=== PATIENT | male | born 1965 | race Caucasian/White ===

== ENCOUNTER 2017-07-28 16:15 | Emergency (ER) | payer BC, OTHER ==
[2017-07-28 18:06] VITALS: BP 144/84
--- NOTE | 2017-07-28 18:14 | UC ---
Respiratory Complaint HPI - HPI Summary HPI Summary: Patient in in emergency department diagnosed with sinusitis patient does have some continuing pain is here tonight for a work note - History of Current Complaint Chief Complaint: UCGeneralIllness Stated Complaint: SINUS PRESSURE, SWOLLEN GLANDS, EAR PAIN Time Seen by Provider: 07/28/17 18:00 Hx Obtained From: Patient Onset/Duration: Gradual Onset, Lasting Days, Still Present Timing: Constant Severity Initially: Moderate Severity Currently: Moderate Pain Intensity: 5 Pain Scale Used: 0-10 Numeric Aggravating Factors: Nothing Alleviating Factors: Nothing Associated Signs And Symptoms: Positive: Nasal Congestion, Sinus Discomfort - Allergies/Home Medications Allergies/Adverse Reactions: Allergies Allergy/AdvReac Type Severity Reaction Status Date / Time tramadol Allergy Headache Verified 07/28/17 18:01 Home Medications: Home Medications Aspirin/Acetaminophen/Caffeine [Excedrin Migraine Caplet] 1 each PO Q12H [History Confirmed 07/28/17] Gabapentin [Neurontin] 100 mg PO Q8H 07/28/17 [History Confirmed 07/28/17] celeCOXIB CAP* [CeleBREX CAP*] 400 mg PO DAILY 07/28/17 [History Confirmed 07/28] PMH/Surg Hx/FS Hx/Imm Hx Previously Healthy: Yes - Surgical History Surgical History: Yes Surgery Procedure, Year, and Place: L4-L5 [facility] - Family History Known Family History: Positive: None - Social History Occupation: Employed Full-time Lives: With Family Alcohol Use: None Substance Use Type: None Substance Use Comment - Amount & Last Used: 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 Smoking Status (MU): Never Smoked Tobacco Have You Smoked in the Last Year: No Review of Systems Constitutional: Negative Skin: Negative Eyes: Negative ENT: Sore Throat, Ear Ache, Nasal Discharge, Sinus Congestion, Sinus Pain/ Tenderness Respiratory: Negative Cardiovascular: Negative Gastrointestinal: Negative Genitourinary: Negative Motor: Negative Neurovascular: Negative Musculoskeletal: Negative Neurological: Negative Psychological: Negative Is Patient Immunocompromised?: No All Other Systems Reviewed And Are Negative: Yes Physical Exam Triage Information Reviewed: Yes Appearance: Well-Appearing, No Pain Distress, Well-Nourished Vital Signs: Initial Vital Signs Temp 98.2 F 07/28/17 17:55 Pulse 80 07/28/17 17:55 Resp 16 07/28/17 17:55 BP 144/84 07/28/17 17:55 Pulse Ox 96 07/28/17 17:55 Vital Signs Reviewed: Yes Eye Exam: Normal Eyes: Positive: Conjunctiva Clear ENT Exam: Normal ENT: Positive: Normal ENT inspection, Hearing grossly normal, Nasal congestion, Nasal drainage, TMs normal, Sinus tenderness, Uvula midline. Negative: Trismus , Muffled voice, Hoarse voice, Dental tenderness Dental Exam: Normal Neck exam: Normal Neck: Positive: Supple, Nontender, No Lymphadenopathy Respiratory Exam: Normal Respiratory: Positive: Chest non-tender, Lungs clear, Normal breath sounds, No respiratory distress, No accessory muscle use Cardiovascular Exam: Normal Cardiovascular: Positive: RRR, No Murmur, Pulses Normal, Brisk Capillary Refill Musculoskeletal Exam: Normal Musculoskeletal: Positive: Strength Intact, ROM Intact, No Edema Neurological Exam: Normal Neurological: Positive: Alert, Muscle Tone Normal Psychological Exam: Normal Skin Exam: Normal UC Diagnostic Evaluation - Laboratory O2 Sat by Pulse Oximetry: 96 Respiratory Course/Dx - Course Course Of Treatment: Will add Flonase nasal spray, taken out of work follow with PCP - Differential Dx/Diagnosis Provider Diagnoses: Acute rhinosinusitis, elevated blood sugar without diagnosis of hypertension Discharge - Sign-Out/Discharge Documenting (check all that apply): Discharge - Discharge Plan Condition: Stable Disposition: HOME Prescriptions: Fluticasone NASAL SPRAY 50MCG* [Flonase NASAL SPRAY 50MCG*] 2 spray BOTH NARES DAILY #1 btl Patient Education Materials: Sinusitis (ED), Lymphadenopathy (ED), Hypertension (ED) Forms: *Work Release Referrals: Elena CASEY,Lindsey Dey [Primary Care Provider] - 2 Weeks - Billing Disposition and Condition Condition: STABLE Disposition: HOME
== END 2017-07-28 18:30 | disposition home or self-care (01) ==
LOC: UCCORT 16:15
DX: J01.90 Acute sinusitis, unspecified (principal); R03.0 Elevated blood-pressure reading, without diagnosis of hypertension; Z88.5 Allergy status to narcotic agent
CPT/HCPCS: 99212; G0463

== ENCOUNTER 2017-08-03 20:26 | Emergency (ER) | payer BC ==
[2017-08-03] MEDS ORDERED: Dexamethasone Oral Solution* 1 MG/ML 10 ML UDC (10 MG) PO ONE (20:37)
[2017-08-03] MEDS ORDERED: diPHENhydraMINE PO* 50 MG PO ONE (20:37)
--- NOTE | 2017-08-03 20:48 | ED ---
Allergic Reaction/Systemic - HPI Summary HPI Summary: 52 yr old on Amoxicillin for 8 days for URI symptoms, and now with hives, itching to arms, neck, and tongue feels a little swollen. He feels he is now allergic to amoxicillin. Never had an issue before. His rash and mild swollen tongue have come on over a period of the past three days. No change in voice, no change in breathing, no drooling. - History of Current Complaint Time Seen by Provider: 08/03/17 20:32 - Allergies/Home Medications Allergies/Adverse Reactions: Allergies Allergy/AdvReac Type Severity Reaction Status Date / Time tramadol Allergy Headache Verified 08/03/17 20:54 PMH/Surg Hx/FS Hx/Imm Hx Musculoskeletal History: Reports: Other Musculoskeletal History - Metatarsus Adductus (MTA); left shoulder rotator cuff Sensory History: Reports: Hx Contacts or Glasses Opthamlomology History: Reports: Hx Contacts or Glasses - Surgical History Surgery Procedure, Year, and Place: L4-L5 [facility] Infectious Disease History: Denies: Traveled Outside the [place] in Last 30 Days - Family History Known Family History: Positive: None - Social History Alcohol Use: None Substance Use Type: Reports: None Substance Use Comment - Amount & Last Used: 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 Lips normal size, eyelids normal size. Head/Face: Positive: Normal Head/Face Inspection Eyes: Positive: EOMI ENT: Positive: Pharynx normal, Uvula midline, Other - tongue appears normal size. No drooling no stridor. He speaks with clear voice. Negative: Nasal congestion, Nasal drainage, Tonsillar swelling, Trismus, Muffled voice, Hoarse voice Neck: Positive: Supple, Nontender Respiratory/Lung Sounds: Positive: Clear to Auscultation, Breath Sounds Present Cardiovascular: Positive: RRR. Negative: Murmur Abdomen Description: Positive: Nontender Musculoskeletal: Positive: Normal, Strength/ROM Intact Neurological: Positive: Sensory/Motor Intact, Alert, Oriented to Person Place, Time, CN Intact II-III Psychiatric: Positive: Normal Re-Evaluation - Re-Evaluation First Eval Re-Evaluation Time: 21:32 Change: Unchanged Comment: Patient stable. His rash is stable and tongue not swollen. He has had symptoms stable for about two days. Will Rx with steroids and benadryl, as I believe this is a more delayed reaction from his amoxicillin. Allergic Reaction Course/Dx - Course Course Of Treatment: allergic reaction, subacute delayed to amox. - Diagnoses Provider Diagnoses: Allergic reaction Discharge - Sign-Out/Discharge Documenting (check all that apply): Discharge/Admit/Transfer - Discharge Plan Condition: Good Disposition: HOME Prescriptions: predniSONE TAB* [Deltasone TAB*] 40 mg PO DAILY #8 tab Referrals: Mary Myers MD [Primary Care Provider] - 2 Days - Billing Disposition and Condition Condition: GOOD Disposition: HOME
[2017-08-03 20:54] VITALS: BP 132/73
== END 2017-08-03 21:46 | disposition home or self-care (01) ==
LOC: UCCORT 20:26
DX: T78.40XA Allergy, unspecified, initial encounter (principal); Z88.5 Allergy status to narcotic agent
CPT/HCPCS: 99212; A9270-GY; G0463

== ENCOUNTER 2017-08-26 19:17 | Emergency (ER) | payer BC ==
[2017-08-26 20:28] VITALS: BP 115/79
[2017-08-26] MEDS ORDERED: DOXYcycline CAP(*) 100 MG PO ONE (20:36)
--- NOTE | 2017-08-26 20:37 | UC ---
Respiratory Complaint HPI - HPI Summary HPI Summary: 52 yo male with 3-4 week hx of sinus pressure and pain as well as post nasal drip low energy no f/c upper teeth and gums sensitive - History of Current Complaint Chief Complaint: UCGeneralIllness Stated Complaint: SINUS/SORE THROAT Time Seen by Provider: 08/26/17 20:25 Hx Obtained From: Patient Onset/Duration: Gradual Onset, Lasting Weeks Timing: Constant Severity Initially: Mild Severity Currently: Moderate Pain Intensity: 4 Pain Scale Used: 0-10 Numeric Character: Cough: Nonproductive Aggravating Factors: Nothing Alleviating Factors: Nothing Associated Signs And Symptoms: Positive: Nasal Congestion, Sinus Discomfort - Allergies/Home Medications Allergies/Adverse Reactions: Allergies Allergy/AdvReac Type Severity Reaction Status Date / Time amoxicillin Allergy Swelling Verified 08/26/17 20:25 tramadol Allergy Headache Verified 08/26/17 20:25 PMH/Surg Hx/FS Hx/Imm Hx Previously Healthy: Yes - Surgical History Surgical History: Yes Surgery Procedure, Year, and Place: L4-L5 [facility] 2017 - Family History Known Family History: Positive: Hypertension - Social History Alcohol Use: None Substance Use Type: None Substance Use Comment - Amount & Last Used: 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 Smoking Status (MU): Never Smoked Tobacco Have You Smoked in the Last Year: No Review of Systems Constitutional: Negative Skin: Negative Eyes: Negative ENT: Dental Pain, Ear Ache, Nasal Discharge, Sinus Congestion, Sinus Pain/ Tenderness Respiratory: Cough Cardiovascular: Negative Gastrointestinal: Negative Genitourinary: Negative Motor: Negative Neurovascular: Negative Musculoskeletal: Negative Neurological: Negative Psychological: Negative Is Patient Immunocompromised?: No All Other Systems Reviewed And Are Negative: Yes Physical Exam Triage Information Reviewed: Yes Appearance: Well-Appearing, No Pain Distress, Well-Nourished Vital Signs: Initial Vital Signs Temp 98.2 F 08/26/17 20:22 Pulse 91 08/26/17 20:22 Resp 16 08/26/17 20:22 BP 115/79 08/26/17 20:22 Pulse Ox 100 08/26/17 20:22 Vital Signs Reviewed: Yes Eyes: Positive: Conjunctiva Clear ENT: Positive: Hearing grossly normal, Nasal congestion, TMs normal, Sinus tenderness, Uvula midline. Negative: Pharyngeal erythema, Nasal drainage, Tonsillar swelling, Tonsillar exudate, Trismus, Muffled voice, Hoarse voice, Dental tenderness Neck: Positive: Supple, Nontender, No Lymphadenopathy Respiratory: Positive: Lungs clear, Normal breath sounds, No respiratory distress, No accessory muscle use Cardiovascular: Positive: RRR Musculoskeletal: Positive: ROM Intact, No Edema Neurological: Positive: Alert Psychological Exam: Normal Skin Exam: Normal UC Diagnostic Evaluation - Laboratory O2 Sat by Pulse Oximetry: 100 Respiratory Course/Dx - Differential Dx/Diagnosis Provider Diagnoses: acute sinusitis Discharge - Sign-Out/Discharge Documenting (check all that apply): Discharge/Admit/Transfer - Discharge Plan Condition: Stable Disposition: HOME Prescriptions: DOXYcycline CAP(*) [DOXYcycline 100MG CAP(*)] 100 mg PO BID #18 cap Patient Education Materials: Sinusitis (ED) Referrals: Mary Myers MD [Primary Care Provider] - 5 Days Additional Instructions: continue flonase saline nasal spray twice daily - Billing Disposition and Condition Condition: STABLE Disposition: HOME
== END 2017-08-26 20:50 | disposition home or self-care (01) ==
LOC: UCCORT 19:17
DX: J01.90 Acute sinusitis, unspecified (principal); Z88.5 Allergy status to narcotic agent; Z88.0 Allergy status to penicillin
CPT/HCPCS: 99212; A9270-GY; G0463

== ENCOUNTER 2017-12-02 12:30 | Emergency (ER) | payer BC ==
[2017-12-02 13:01] VITALS: BP 117/69
--- NOTE | 2017-12-02 13:07 | UC ---
Abdominal Pain Male HPI - HPI Summary HPI Summary: pt presents with nausea and abd cramping. pt,w rowena and child all at dinner at 1830. approx 2000 all3 with nausea and vomiting. pt states son now with diarrhea. pt continues with cramig pain and intermittend diarrhea. nausea improved, but not resolved. pt did not sleep well. pt has been drinking fluids but reports nausea and no energy. no fever, chills. Pt did not go to work today Pt's medications reviewed this visit - History of Current Complaint Chief Complaint: UCGeneralIllness Stated Complaint: STOMACH COMPLAINT NAUSEA WEAK Time Seen by Provider: 12/02/17 13:02 Hx Obtained From: Patient Pain Intensity: 3 - Allergies/Home Medications Allergies/Adverse Reactions: Allergies Allergy/AdvReac Type Severity Reaction Status Date / Time amoxicillin Allergy Swelling Verified 12/02/17 12:59 tramadol Allergy Headache Verified 12/02/17 12:59 PMH/Surg Hx/FS Hx/Imm Hx Previously Healthy: Yes - Surgical History Surgical History: Yes Surgery Procedure, Year, and Place: L4-L5 [facility] 2017 - Family History Known Family History: Positive: None, Hypertension - Social History Occupation: Employed Full-time Lives: With Family Alcohol Use: None Substance Use Type: None Substance Use Comment - Amount & Last Used: 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 EOM intact and full ENT: Hearing grossly normal TM x 2 clear, mmpasty, uvula midline, no exudate, no erythema Neck: Positive: Supple Respiratory: Positive: No respiratory distress, No accessory muscle use + CTA throughout no w/r Cardiovascular: RRR nl s1, s2 no m/r CBT <2 sec abd soft + BS mild diffuse discomfort no guarding, no rebound soft no distension Musculoskeletal Exam: ROTHMAN x 4 without difficulty Strength Intact, ROM Intact Neurological: Positive: Alert, + sensation throughout Psychological: Positive: Normal Response To Family Skin: Positive: no rash, no ecchymosis Triage Information Reviewed: Yes Vital Signs: Initial Vital Signs Temp 98.0 F 12/02/17 12:54 Pulse 85 12/02/17 12:54 Resp 15 12/02/17 12:54 BP 117/69 12/02/17 12:54 Pulse Ox 100 12/02/17 12:54 Abd Pain Male Course/Dx - Course Course Of Treatment: Pt with nausea, abd cramping following questionable food contamination lasst night pt vss pt abd exam with mild discomfort. will give zofran, po trial. likely discharge with clear to bland. rest. motrin/apap. heat pad. work note - Differential Dx/Clinical Impression Provider Diagnoses: abd cramping. nausea Discharge - Sign-Out/Discharge Documenting (check all that apply): Patient Departure All imaging exams completed and their final reports reviewed: No Studies - Discharge Plan Condition: Stable Disposition: HOME Prescriptions: Ondansetron ODT TAB* [Zofran 4 MG Odt TAB*] 4 mg PO Q6H PRN #10 tab.odt PRN Reason: Nausea Patient Education Materials: Acute Nausea and Vomiting (ED) Forms: *Gen. Provider Communication, *Work Release Referrals: Mary Myers MD [Primary Care Provider] - Additional Instructions: - For the first 6 hours, eat and drink clears (water, caroline richie, soup broth, jello, popsicles, Gatorade). If you tolerate this okay, add bland foods such as dry toast, scrambled eggs, crackers. Wait until you are feeling better for 24 hours before eating spicy food, acidic food, tomato based food, fried food. - Take medication as prescribed for nausea - If you develop fevers, uncontrolled vomiting or pain, it is recommended you go to the emergency department for further evaluation and treatment - Billing Disposition and Condition Condition: STABLE Disposition: Home
[2017-12-02] MEDS ORDERED: Ondansetron ODT TAB* 4 MG PO ONE (13:16)
== END 2017-12-02 13:47 | disposition home or self-care (01) ==
LOC: UCCORT 12:30
DX: R10.84 Generalized abdominal pain (principal); R11.0 Nausea; Z88.5 Allergy status to narcotic agent; Z88.0 Allergy status to penicillin
CPT/HCPCS: 99212; A9270-GY; G0463

== ENCOUNTER 2018-02-07 13:17 | Emergency (ER) | payer BC ==
[2018-02-07 13:52] VITALS: BP 127/74
--- NOTE | 2018-02-07 14:18 | UC ---
Throat Pain/Nasal Ren HPI - HPI Summary HPI Summary: Started getting nasal congestion and scratchy throat 4 days ago. Tends to get secondary infections in his sinuses, and thought he was doing ok until yesterday morning. Feels pressure and congestion localized in L sinuses and L ear, worsening today. Feels very sick and fatigued. - History of Current Complaint Chief Complaint: UCRespiratory Stated Complaint: DICKSON,ST,BILATERAL EAR/SINUS COMPLAINT Time Seen by Provider: 02/07/18 13:59 Hx Obtained From: Patient Onset/Duration: Gradual Onset, Lasting Days Severity: Mild Pain Intensity: 2 Cough: None Associated Signs & Symptoms: Positive: Sinus Discomfort, Nasal Discharge. Negative: Wheezing, Hoarseness, Fever, Vomiting - Allergies/Home Medications Allergies/Adverse Reactions: Allergies Allergy/AdvReac Type Severity Reaction Status Date / Time amoxicillin Allergy Swelling Verified 02/07/18 13:46 tramadol Allergy Headache Verified 02/07/18 13:46 PMH/Surg Hx/FS Hx/Imm Hx Previously Healthy: Yes Other Psychological History: opaite abuse, in recovery - Surgical History Surgical History: Yes Surgery Procedure, Year, and Place: L4-L5 [facility] 2017 - Family History Known Family History: Positive: Hypertension - Social History Occupation: Employed Full-time Lives: With Family Alcohol Use: None Substance Use Type: None Substance Use Comment - Amount & Last Used: 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 Smoking Status (MU): Never Smoked Tobacco Have You Smoked in the Last Year: No - Immunization History Most Recent Tetanus Shot: UTD Review of Systems Constitutional: Negative Skin: Negative Eyes: Negative ENT: Sore Throat, Nasal Discharge, Sinus Congestion, Sinus Pain/Tenderness Respiratory: Negative Cardiovascular: Negative Gastrointestinal: Negative Genitourinary: Negative Motor: Negative Neurovascular: Negative Musculoskeletal: Negative Neurological: Negative Psychological: Negative Is Patient Immunocompromised?: No All Other Systems Reviewed And Are Negative: Yes Physical Exam Triage Information Reviewed: Yes Appearance: No Pain Distress, Well-Nourished, Ill-Appearing - acutely ill Vital Signs: Initial Vital Signs Temp 97.5 F 02/07/18 13:48 Pulse 84 02/07/18 13:48 Resp 16 02/07/18 13:48 BP 127/74 02/07/18 13:48 Pulse Ox 98 02/07/18 13:48 Vital Signs Reviewed: Yes Eye Exam: Normal Eyes: Positive: Conjunctiva Clear ENT: Positive: Hearing grossly normal, Pharynx normal, Nasal congestion, TMs normal, Sinus tenderness, Other - loss of vocal resonance. Negative: TM bulging , TM dull, TM red, Tonsillar swelling Neck exam: Normal Neck: Positive: Supple, Nontender, No Lymphadenopathy Respiratory Exam: Normal Respiratory: Positive: Chest non-tender, Lungs clear, Normal breath sounds, No respiratory distress, No accessory muscle use Cardiovascular Exam: Normal Cardiovascular: Positive: RRR, No Murmur Musculoskeletal Exam: Normal Musculoskeletal: Positive: Strength Intact, ROM Intact Neurological Exam: Normal Neurological: Positive: Alert Psychological Exam: Normal Skin Exam: Normal Throat Pain/Nasal Course/Dx - Differential Dx/Diagnosis Provider Diagnoses: Acute bacterial rhinosinusitis Discharge - Sign-Out/Discharge Documenting (check all that apply): Patient Departure All imaging exams completed and their final reports reviewed: Yes - Discharge Plan Condition: Stable Disposition: HOME Prescriptions: Cefdinir [Cefdinir 300 MG CAP] 300 mg PO BID #14 capsule Patient Education Materials: Rhinosinusitis (ED) Referrals: Patricia Wolfe NP [Primary Care Provider] - If Needed - Billing Disposition and Condition Condition: STABLE Disposition: Home
== END 2018-02-07 14:18 | disposition home or self-care (01) ==
LOC: UCCORT 13:17
DX: J01.90 Acute sinusitis, unspecified (principal); Z88.0 Allergy status to penicillin; Z88.6 Allergy status to analgesic agent
CPT/HCPCS: 99212; G0463

== ENCOUNTER 2018-03-09 16:28 | Emergency (ER) | payer BC ==
[2018-03-09 18:14] VITALS: BP 136/71
--- NOTE | 2018-03-09 18:23 | UC ---
UC General HPI - HPI Summary HPI Summary: 2 DAY HX MILD HEADACHE, NASAL CONGESTION,NAUSEA AND FATIGUE. NO FEVER AND NOT ABRUPT OR WORST HEADACHE. NO CHANGES IN CHRONIC MEDICATIONS. - History of Current Complaint Chief Complaint: UCGeneralIllness Stated Complaint: headache/nausa Time Seen by Provider: 03/09/18 18:15 Hx Obtained From: Patient Onset/Duration: Gradual Onset Timing: Constant Pain Intensity: 4 Aggravating: MORE NAUSEA WITH MEALS Alleviating: PARTIAL WITH EXCEDRIN Associated Signs & Symptoms: Positive: Headache, Nausea. Negative: Abdominal Pain, Cough, Diarrhea, Dysuria, Fever, Vomiting - Allergy/Home Medications Allergies/Adverse Reactions: Allergies Allergy/AdvReac Type Severity Reaction Status Date / Time amoxicillin Allergy Swelling Verified 03/09/18 18:10 tramadol Allergy Headache Verified 03/09/18 18:10 PMH/Surg Hx/FS Hx/Imm Hx - Additional Past Medical History Additional PMH: SINUSITIS, CHRONIC BACK/FOOT PAIN - Surgical History Surgical History: Yes Surgery Procedure, Year, and Place: L4-L5 [facility] 2017 - Family History Known Family History: Positive: Hypertension - Social History Alcohol Use: None Substance Use Type: None Substance Use Comment - Amount & Last Used: 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 Smoking Status (MU): Never Smoked Tobacco Have You Smoked in the Last Year: No - Immunization History Most Recent Tetanus Shot: UTD Vaccination Up to Date: Yes Review of Systems All Other Systems Reviewed And Are Negative: Yes Constitutional: Positive: Chills, Fatigue Skin: Positive: Negative Eyes: Positive: Negative ENT: Positive: Sinus Congestion Respiratory: Positive: Negative Cardiovascular: Positive: Negative Gastrointestinal: Negative: Abdominal Pain, Vomiting, Diarrhea, Nausea Genitourinary: Positive: Negative Motor: Positive: Negative Neurovascular: Positive: Negative Musculoskeletal: Positive: Negative Neurological: Positive: Headache Psychological: Positive: Negative Is Patient Immunocompromised?: No Physical Exam Triage Information Reviewed: Yes Appearance: Well-Appearing Vital Signs: Initial Vital Signs Temp 97.6 F 03/09/18 18:09 Pulse 82 03/09/18 18:09 Resp 16 03/09/18 18:09 BP 136/71 03/09/18 18:09 Pulse Ox 99 03/09/18 18:09 Vital Signs Reviewed: Yes Eyes: Positive: Conjunctiva Clear ENT: Positive: Pharynx normal, Nasal congestion, TMs normal. Negative: Nasal drainage, Sinus tenderness Neck: Positive: Supple, Nontender, No Lymphadenopathy. Negative: Nuchal Rigidity Respiratory: Positive: Lungs clear, Normal breath sounds, No respiratory distress Cardiovascular: Positive: RRR, No Murmur Abdomen Description: Positive: Nontender, No Organomegaly, Soft. Negative: Distended, Guarding Bowel Sounds: Positive: Present Musculoskeletal: Positive: ROM Intact Neurological: Positive: Other: - A&OX3, cn 2-12 GROSSLY INTACT, 5/5 STRENGHT 2+ RELEXES AND SENSATION INTACT X4. Psychological: Positive: Age Appropriate Behavior Skin Exam: Normal Re-Evaluation - Re-Evaluation First Eval Re-Evaluation Time: 18:48 Change: Improved - NOTES THE UPSET STOMACH RESOLVED Course/Dx - Course Course Of Treatment: NON TOXIC. NEURO EXAM IS REASSURING. NO CONCERN FOR INTRACRANIAL BLEED OR MASS. - Diagnoses Provider Diagnosis: Malaise and fatigue Discharge - Sign-Out/Discharge Documenting (check all that apply): Patient Departure All imaging exams completed and their final reports reviewed: No Studies - Discharge Plan Condition: Stable Disposition: HOME Prescriptions: Ondansetron ODT TAB* [Zofran 4 MG Odt TAB*] 4 mg PO Q6H PRN #10 tab.odt PRN Reason: Nausea Patient Education Materials: Acute Headache (DC), Fatigue (ED) Forms: *Work Release Referrals: Patricia Wolfe NP [Primary Care Provider] - 3 Days - Billing Disposition and Condition Condition: STABLE Disposition: Home - Attestation Statements Provider Attestation: I was available for consult. This patient was seen by the GERARDO. The patient was not presented to, seen by, or examined by me. -Scott
[2018-03-09] MEDS ORDERED: Ondansetron ODT TAB* 4 MG PO ONE (18:24)
[2018-03-09] MEDS ORDERED: Ibuprofen ADULT LIQ* 600 MG/30 ML UDC PO ONE (18:25)
== END 2018-03-09 18:53 | disposition home or self-care (01) ==
LOC: UCCORT 16:28
DX: R53.81 Other malaise (principal); R53.83 Other fatigue; Z88.5 Allergy status to narcotic agent; Z88.0 Allergy status to penicillin
CPT/HCPCS: 99212; A9270-GY; G0463